=== PATIENT | male | born 1995 | race African-American/Black ===

== ENCOUNTER 2018-01-14 08:21 | Emergency (ER) | payer MEDICAID ==
[2018-01-14 08:30] VITALS: BP 145/82
[2018-01-14] MEDS ORDERED: POLYMYXIN B SULFATE/TMP OPH SOLN (10 ML/ER DISP) OS PRN (09:04)
--- NOTE | 2018-01-14 09:06 | ER Document Report ---
ED General - General Chief Complaint: Redness of Eye Stated Complaint: EYE REDNESS Time Seen by Provider: 01/14/18 08:49 TRAVEL OUTSIDE OF THE [place] IN LAST 30 DAYS: No - HPI Patient complains to provider of: Left eye redness Notes: Patient coming in for evaluation of left eye redness and drainage and discomfort. Patient states recently had a URI. Patient denies any fevers or chills states he was around family members that had pinkeye last week. Patient does not wear contacts does not wear glasses. Resting comfortably upon my evaluation. States this morning it was mildly matted with purulent material - Related Data Allergies/Adverse Reactions: No Known Allergies Allergy (Unverified 07/05/16 22:31) Past Medical History - Social History Smoking Status: Never Smoker Chew tobacco use (# tins/day): No Frequency of alcohol use: None Drug Abuse: None Family History: Reviewed & Not Pertinent Patient has suicidal ideation: No Patient has homicidal ideation: No Renal/ Medical History: Denies: Hx Peritoneal Dialysis - Immunizations Immunizations up to date: Yes Review of Systems - Review of Systems Constitutional: No symptoms reported EENT: Eye discharge Cardiovascular: No symptoms reported Respiratory: No symptoms reported Gastrointestinal: No symptoms reported Genitourinary: No symptoms reported Male Genitourinary: No symptoms reported Musculoskeletal: No symptoms reported Skin: No symptoms reported Hematologic/Lymphatic: No symptoms reported Neurological/Psychological: No symptoms reported -: Yes All other systems reviewed and negative Physical Exam - Vital signs Vitals: Temp Pulse Resp BP Pulse Ox 98.3 F 72 16 145/82 H 99 01/14/18 08:25 01/14/18 08:25 01/14/18 08:25 01/14/18 08:25 01/14/18 08:25 Interpretation: Normal - General General appearance: Appears well, Alert - HEENT Head: Normocephalic, Atraumatic Eyes: Normal Conjunctiva: Injected, Purulent discharge, Other - Left eye right eye unaffected Cornea: Normal Extraocular movements intact: Yes Eyelashes: Normal Pupils: PERRL Anterior chamber: Normal Fundascopic: Normal - Respiratory Respiratory status: No respiratory distress Chest status: Nontender Breath sounds: Normal Chest palpation: Normal - Cardiovascular Rhythm: Regular Heart sounds: Normal auscultation Murmur: No - Abdominal Inspection: Normal Distension: No distension Bowel sounds: Normal Tenderness: Nontender Organomegaly: No organomegaly - Back Back: Normal, Nontender - Extremities General upper extremity: Normal inspection, Nontender, Normal color, Normal ROM , Normal temperature General lower extremity: Normal inspection, Nontender, Normal color, Normal ROM , Normal temperature, Normal weight bearing. No: Jace's sign - Neurological Neuro grossly intact: Yes Cognition: Normal Orientation: AAOx4 [place] Coma Scale Eye Opening: Spontaneous [place] Coma Scale Verbal: Oriented [place] Coma Scale Motor: Obeys Commands Ros[place] Coma Scale Total: 15 Speech: Normal Motor strength normal: LUE, RUE, LLE, RLE Sensory: Normal - Psychological Associated symptoms: Normal affect, Normal mood - Skin Skin Temperature: Warm Skin Moisture: Dry Skin Color: Normal Course - Re-evaluation Re-evalutation: 01/14/18 13:59 Patient's physical examination is consistent with conjunctivitis patient was placed on Polytrim. No signs of foreign body seen on examination of the any other significant pathology. Patient will be discharged home - Vital Signs Vital signs: Temp Pulse Resp BP Pulse Ox 98.3 F 72 16 145/82 H 99 01/14/18 08:25 01/14/18 08:25 01/14/18 08:25 01/14/18 08:25 01/14/18 08:25 Discharge - Discharge Clinical Impression: Conjunctivitis Qualifiers: Conjunctivitis type: unspecified Laterality: left Qualified Code(s): H10.9 - Unspecified conjunctivitis Condition: Good Disposition: HOME, SELF-CARE Instructions: Conjunctivitis ([facility]), Eyedrop Use ([facility]) Additional Instructions: Follow-up with your primary care physician. Please use the eyedrops given to you in ER 2 drops 4 times a day for the next 10 days. Tylenol Motrin for pain control.
== END 2018-01-14 09:44 | disposition home or self-care (01) ==
LOC: ER 08:21
DX: H10.9 Unspecified conjunctivitis (principal)
CPT/HCPCS: 99282; J3490

== ENCOUNTER 2018-01-30 23:55 | Emergency (ER) | payer MEDICAID ==
--- NOTE | 2018-01-31 01:11 | ER Document Report ---
ED Medical Screen (RME) - General Chief Complaint: Pain With Urination Stated Complaint: URINARY PROBLEM Time Seen by Provider: 01/31/18 01:10 Mode of Arrival: Ambulatory Information source: Patient Notes: 22-year-old male presents to ED for complaint of pain and burning with urination with a white penile discharge for a month. He states he does not feel like when he had chlamydia this is different. I have greeted and performed a rapid initial assessment of this patient. A comprehensive ED assessment and evaluation of the patient, analysis of test results and completion of medical decision making process will be conducted by an additional ED providers. TRAVEL OUTSIDE OF THE [place] IN LAST 30 DAYS: No - Related Data Allergies/Adverse Reactions: No Known Allergies Allergy (Unverified 07/05/16 22:31) Past Medical History Renal/ Medical History: Denies: Hx Peritoneal Dialysis - Immunizations Immunizations up to date: Yes Physical Exam - Vital signs Vitals: Temp Pulse Resp BP Pulse Ox 98.4 F 86 16 131/92 H 97 01/30/18 23:56 01/30/18 23:56 01/30/18 23:56 01/30/18 23:56 01/30/18 23:56 Course - Vital Signs Vital signs: Temp Pulse Resp BP Pulse Ox 98.4 F 86 16 131/92 H 97 01/30/18 23:56 01/30/18 23:56 01/30/18 23:56 01/30/18 23:56 01/30/18 23:56
[2018-01-31 01:43] LABS: APPEARANCE,URINE CLOUDY; BILIRUBIN,URINE NEGATIVE (NEGATIVE); COLOR,URINE YELLOW; GLUCOSE, URINE NEGATIVE (NEGATIVE); KETONES,URINE NEGATIVE (NEGATIVE); LEUKOCYTE ESTERASE,URINE LARGE (NEGATIVE); NITRITE,URINE NEGATIVE (NEGATIVE); PROTEIN,URINE NEGATIVE (NEGATIVE); URINE SPECIFIC GRAVITY 1.032
[2018-01-31] MEDS ORDERED: METRONIDAZOLE 500 MG TABLET PO ONE (02:15)
[2018-01-31] MEDS ORDERED: AZITHROMYCIN 1 GM SUSP PACKET PO ONE (02:15)
[2018-01-31] MEDS ORDERED: CEFTRIAXONE INJ 250 MG VIAL IM ONE (02:16)
--- NOTE | 2018-01-31 02:19 | ER Document Report ---
ED General - General Chief Complaint: Pain With Urination Stated Complaint: URINARY PROBLEM Time Seen by Provider: 01/31/18 01:10 Mode of Arrival: Ambulatory TRAVEL OUTSIDE OF THE [place] IN LAST 30 DAYS: No - HPI Patient complains to provider of: Dysuria Notes: Patient coming in for dysuria and penile discharge. Patient states has history of chlamydia in the past however penile discharge and burning ongoing for approximately 1 month. Patient is white discharge expressed from his penis. Patient denies any fevers chills nausea vomiting diarrhea denies any inguinal pain. Patient otherwise resting comfortably upon my evaluation. Denies any sores on his penis. - Related Data Allergies/Adverse Reactions: No Known Allergies Allergy (Unverified 07/05/16 22:31) Past Medical History - General Information source: Patient - Social History Smoking Status: Unknown if Ever Smoked Family History: Reviewed & Not Pertinent Renal/ Medical History: Denies: Hx Peritoneal Dialysis - Immunizations Immunizations up to date: Yes Review of Systems - Review of Systems Constitutional: No symptoms reported EENT: No symptoms reported Cardiovascular: No symptoms reported Respiratory: No symptoms reported Gastrointestinal: No symptoms reported Genitourinary: Dysuria Male Genitourinary: Penile discharge Musculoskeletal: No symptoms reported Skin: No symptoms reported Hematologic/Lymphatic: No symptoms reported Neurological/Psychological: No symptoms reported Physical Exam - Vital signs Vitals: Temp Pulse Resp BP Pulse Ox 98.4 F 86 16 131/92 H 97 01/30/18 23:56 01/30/18 23:56 01/30/18 23:56 01/30/18 23:56 01/30/18 23:56 Interpretation: Normal - General General appearance: Appears well, Alert - HEENT Head: Normocephalic, Atraumatic Eyes: Normal Pupils: PERRL - Respiratory Respiratory status: No respiratory distress Chest status: Nontender Breath sounds: Normal Chest palpation: Normal - Cardiovascular Rhythm: Regular Heart sounds: Normal auscultation Murmur: No - Abdominal Inspection: Normal Distension: No distension Bowel sounds: Normal Tenderness: Nontender Organomegaly: No organomegaly - Genitourinary Inspection: Normal, Penile discharge - Patient is able to express a very scant amount of white discharge from the penis Tenderness: Nontender Cremasteric reflex: Normal - Back Back: Normal, Nontender - Extremities General upper extremity: Normal inspection, Nontender, Normal color, Normal ROM , Normal temperature General lower extremity: Normal inspection, Nontender, Normal color, Normal ROM , Normal temperature, Normal weight bearing. No: Jace's sign - Neurological Neuro grossly intact: Yes Cognition: Normal Orientation: AAOx4 [place] Coma Scale Eye Opening: Spontaneous [place] Coma Scale Verbal: Oriented [place] Coma Scale Motor: Obeys Commands [place] Coma Scale Total: 15 Speech: Normal Motor strength normal: LUE, RUE, LLE, RLE Sensory: Normal - Psychological Associated symptoms: Normal affect, Normal mood - Skin Skin Temperature: Warm Skin Moisture: Dry Skin Color: Normal Course - Re-evaluation Re-evalutation: 01/31/18 04:11 Penile discharge concerning for possible STD. Patient agrees with treatment at this time we will get the patient Rocephin for gonorrhea Zithromax for chlamydia and Flagyl for trichomonas. There is bacteria actually seen on the urinalysis with signs of significant infection I will go ahead and start the patient on Keflex urine culture was sent patient will be discharged home - Vital Signs Vital signs: Temp Pulse Resp BP Pulse Ox 98.1 F 90 18 128/87 H 98 01/31/18 02:50 01/31/18 02:50 01/31/18 02:50 01/31/18 02:50 01/31/18 02:50 - Laboratory Laboratory results interpreted by me: 01/31/18 01:20 Urine Urobilinogen 4.0 H Ur Leukocyte Esterase LARGE H Discharge - Discharge Clinical Impression: Penile discharge UTI (urinary tract infection) Qualifiers: Urinary tract infection type: site unspecified Hematuria presence: without hematuria Qualified Code(s): N39.0 - Urinary tract infection, site not specified Condition: Good Disposition: HOME, SELF-CARE Instructions: Cephalexin ([facility]), Urinary Tract Infection ([facility]) Additional Instructions: Your urinalysis today does show signs of infection. I am concerned with the penile discharge and she may have underlying STD. We will give you a medication called Rocephin to treat you for gonorrhea we will give you a medication called azithromycin to treat you for chlamydia and I will give you a medication called Flagyl to treat for any signs of trichomonas. At this time her testing for these STDs is currently pending. The treatment would not harm me. I will also give a prescription for an antibiotic called Keflex and she will need to take for the next 7 days. We will send urine for culture unfortunately the urine culture will not be back for another 48 hours. Your STD testing will be available tomorrow I will highly suggest calling the ER for your results. Prescriptions: Cephalexin Monohydrate [Keflex 500 mg Capsule] 500 mg PO Q6H 7 Days capsule
[2018-01-31 02:52] VITALS: BP 128/87
[2018-01-31 03:04] LABS: CHLAM PCR NOT DETECTED (NOT DETECT); GON PCR NOT DETECTED (NOT DETECT)
== END 2018-01-31 02:50 | disposition home or self-care (01) ==
LOC: ER 23:55
DX: N39.0 Urinary tract infection, site not specified (principal); R36.9 Urethral discharge, unspecified
CPT/HCPCS: 99283; 96372; 87086; 81001; 87491; 87591; Q0144; J3490; J0696

== ENCOUNTER 2018-07-28 19:43 | Emergency (ER) | payer OTHER, MEDICAID ==
[2018-07-28 21:03] VITALS: BP 136/71
[2018-07-28] MEDS ORDERED: ACETAMINOPHEN 325 MG TABLET PO ONE (22:19)
[2018-07-28] MEDS ORDERED: IBUPROFEN 600 MG TABLET PO ONE (22:20)
[2018-07-28] MEDS ORDERED: LIDOCAINE 5% (700 MG) TRANSDERMAL ADH..PATCH TP ONE (22:20)
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
== END 2018-07-28 22:43 | disposition home or self-care (01) ==
LOC: ER 19:43
DX: M54.5 Low back pain (principal); V43.62XA Car passenger injured in collision with other type car in traffic accident, initial encounter; F17.200 Nicotine dependence, unspecified, uncomplicated
CPT/HCPCS: 99283

== ENCOUNTER 2019-02-04 13:23 | Emergency (ER) | payer MEDICAID, OTHER ==
[2019-02-04] MEDS ORDERED: ASPIRIN 81 MG TABLET, CHEWABLE PO ONE (13:37)
--- NOTE | 2019-02-04 13:38 | ER Document Report ---
ED Medical Screen (RME) - General Chief Complaint: Palpitations Stated Complaint: FEELS LIKE HEART IS "RACING" Time Seen by Provider: 02/04/19 13:33 Mode of Arrival: Ambulatory Information source: Patient Notes: Patient presents complaining of chest pain with palpitations that started yesterday. Patient does report mild cough. Patient denies any nausea vomiting or shortness of breath. Patient denies any significant medical history. I have greeted and performed a rapid initial assessment of this patient. A comprehensive ED assessment and evaluation of the patient, analysis of test re sults and completion of the medical decision making process will be conducted by additional ED providers. TRAVEL OUTSIDE OF THE [place] IN LAST 30 DAYS: No - Related Data Allergies/Adverse Reactions: No Known Allergies Allergy (Verified 02/04/19 13:24) Past Medical History Renal/ Medical History: Denies: Hx Peritoneal Dialysis - Immunizations Immunizations up to date: Yes Physical Exam - Vital signs Vitals: Temp Pulse Resp BP Pulse Ox 99.2 F 72 14 108/79 97 02/04/19 13:33 02/04/19 13:33 02/04/19 13:33 02/04/19 13:33 02/04/19 13:33 - Cardiovascular Rhythm: Regular Heart sounds: S1 appreciated, S2 appreciated Murmur: No Course - Vital Signs Vital signs: Temp Pulse Resp BP Pulse Ox 99.2 F 72 14 108/79 97 02/04/19 13:33 02/04/19 13:33 02/04/19 13:33 02/04/19 13:33 02/04/19 13:33
[2019-02-04 14:16] LABS: ABSOLUTE EOSINOPHILS # (AUTO) 0.3 10^3/uL (0.0-0.6); ABSOLUTE LYMPHOCYTES (AUTO) 1.5 10^3/uL (0.5-4.7); ABSOLUTE MONOCYTES (AUTO) 0.6 10^3/uL (0.1-1.4); ABSOLUTE NEUT (AUTO) 7.3 10^3/uL (1.7-8.2); BASOPHILS % (AUTO) 0.3 % (0-2); EOSINOPHILS % (AUTO) 3.3 % (0-6); HEMATOCRIT 45.8 % (37.9-51.0); HEMOGLOBIN 15.5 g/dL (13.5-17.0); LYMPHOCYTES % (AUTO) 15.1 % (13-45); MEAN CORPUSCULAR HEMOGLOBIN 29.1 pg (27.0-33.4); MEAN CORPUSCULAR HGB CONC 33.8 g/dL (32.0-36.0); MEAN CORPUSCULAR VOLUME 86 fl (80-97); MONOCYTES % (AUTO) 6.6 % (3-13); PLATELET COUNT 208 10^3/uL (150-450); RED BLOOD COUNT 5.31 10^6/uL (4.35-5.55); RED CELL DISTRIBUTION WIDTH 14.9 % (11.5-14.0); SEGMENTED NEUTROPHILS % (AUTO) 74.7 % (42-78); TOTAL CELLS COUNTED % (AUTO) 100 %; WHITE BLOOD COUNT 9.7 10^3/uL (4.0-10.5)
--- NOTE | 2019-02-04 14:19 | RADIOLOGY REPORT (SQ) ---
EXAM DESCRIPTION: CHEST 2 VIEWS COMPLETED DATE/TIME: 02/04/2019 2:06 pm REASON FOR STUDY: palpitations, cp COMPARISON: 03/22/2010 EXAM PARAMETERS: NUMBER OF VIEWS: two views TECHNIQUE: Digital Frontal and Lateral radiographic views of the chest acquired. RADIATION DOSE: NA LIMITATIONS: none FINDINGS: LUNGS AND PLEURA: No opacities, masses or pneumothorax. No pleural effusion. MEDIASTINUM AND HILAR STRUCTURES: No masses or contour abnormalities. HEART AND VASCULAR STRUCTURES: Heart normal size. No evidence for failure. BONES: No acute findings. HARDWARE: None in the chest. OTHER: No other significant finding. IMPRESSION: No acute abnormality of the lungs. No focal airspace opacity. TECHNICAL DOCUMENTATION: JOB ID: [id number] [employer]- All Rights Reserved Reading location - IP/workstation name: [email or web address]
[2019-02-04 14:36] LABS: ALANINE AMINOTRANSFERASE 24 U/L (21-72); ALBUMIN 4.6 g/dL (3.5-5.0); ALKALINE PHOSPHATASE 59 U/L (38-126); ANION GAP 9 (5-19); ASPARTATE AMINO TRANSFERASE 31 U/L (17-59); BILIRUBIN,DIRECT 0.2 mg/dL (0.0-0.4); BILIRUBIN,TOTAL 0.4 mg/dL (0.2-1.3); BLOOD UREA NITROGEN 16 mg/dL (7-20); CALCIUM 9.7 mg/dL (8.4-10.2); CARBON DIOXIDE 29 mmol/L (22-30); CHLORIDE 102 mmol/L (98-107); CREATINE KINASE 286 U/L (55-170); GLUCOSE 86 mg/dL (75-110); SODIUM 140.4 mmol/L (137-145); TOTAL PROTEIN 7.3 g/dL (6.3-8.2)
--- NOTE | 2019-02-04 16:13 | ER Document Report ---
ED General - General Chief Complaint: Palpitations Stated Complaint: FEELS LIKE HEART IS "RACING" Time Seen by Provider: 02/04/19 13:33 Mode of Arrival: Ambulatory Information source: Patient, [facility] Records Notes: 23-year-old male presents with 2 days of intermittent chest pain. Patient states that he first experienced chest pain while lifting a couch. He states he has had intermittent episodes of palpitations. Patient denies prior similar symptoms, recent illness. Patient currently has no chest pain. He denies any associated shortness of breath, diaphoresis, nausea or dizziness. Patient does admit to tobacco and marijuana use. Denies any significant family history of early cardiac disease. TRAVEL OUTSIDE OF THE [place] IN LAST 30 DAYS: No - HPI Onset: Other Onset/Duration: Intermittent Quality of pain: Sharp Severity: Mild Pain Level: 1 Associated symptoms: Chest pain. denies: Nonproductive cough, Productive cough, Fever, Headache, Hurts to breath, Nausea, Shortness of breath, Weakness Exacerbated by: Movement Relieved by: Denies Similar symptoms previously: No Recently seen / treated by doctor: No - Related Data Allergies/Adverse Reactions: No Known Allergies Allergy (Verified 02/04/19 15:20) Past Medical History - General Information source: Patient - Social History Smoking Status: Current Some Day Smoker Cigarette use (# per day): Yes - 2-3 Smoking Education Provided: Yes - Smoking cessation counseling was provided for 4 minutes at the bedside Frequency of alcohol use: None Drug Abuse: Marijuana Lives with: Family Family History: Reviewed & Not Pertinent Patient has suicidal ideation: No Patient has homicidal ideation: No - Medical History Medical History: Negative Renal/ Medical History: Denies: Hx Peritoneal Dialysis - Immunizations Immunizations up to date: Yes Review of Systems - Review of Systems Notes: REVIEW OF SYSTEMS: CONSTITUTIONAL : Denies fever, chills, or sweats. Denies recent illness. Denies weight loss, recent hospitalizations. EENT: Denies visual changes, eye pain. Denies sore throat, oral lesions, difficulty swallowing. CARDIOVASCULAR: + chest pain. Denies palpitations. Denies lower extremity edema. RESPIRATORY: Denies cough. Denies shortness of breath, wheezing. GASTROINTESTINAL: Denies abdominal pain or distention. Denies nausea, vomiting, or diarrhea. Denies blood in vomitus, stools, or per rectum. Denies black, tarry stools. Denies constipation. GENITOURINARY: Denies difficulty urinating, painful urination, frequency, blood in urine, testicular pain or penile discharge. MUSCULOSKELETAL: Denies back or neck pain or stiffness. Denies joint pain or swelling. SKIN: Denies rash, lesions or sores. HEMATOLOGIC : Denies easy bruising or bleeding. LYMPHATIC: Denies swollen glands. NEUROLOGICAL: Denies confusion or altered mental status. Denies loss of consciousness. Denies dizziness or lightheadedness. Denies headache. Denies weakness or paralysis. Denies problems difficulty with ambulation, slurred speech. Denies sensory loss, numbness, or tingling. Denies seizures. PSYCHIATRIC: Denies anxiety or stress. Denies depression, suicidal ideation, or Physical Exam - Vital signs Vitals: Temp Pulse Resp BP Pulse Ox 99.2 F 72 14 108/79 97 02/04/19 13:33 02/04/19 13:33 02/04/19 13:33 02/04/19 13:33 02/04/19 13:33 - Notes Notes: PHYSICAL EXAMINATION: GENERAL: Well-appearing, well-nourished and in no acute distress. HEAD: Atraumatic, normocephalic. EYES: Pupils equal round and reactive to light, extraocular movements intact, sclera anicteric, conjunctiva are normal. ENT: Nares patent, oropharynx clear without exudates. Moist mucous membranes. NECK: Normal range of motion, supple without lymphadenopathy LUNGS: Breath sounds clear to auscultation bilaterally and equal. No wheezes rales or rhonchi. HEART: Regular rate and rhythm without murmurs ABDOMEN: Soft, nontender, nondistended abdomen. No guarding, no rebound. No ma sses appreciated. Musculoskeletal: Normal range of motion, no pitting or edema. No cyanosis. NEUROLOGICAL: Cranial nerves grossly intact. Normal speech, normal gait. Normal sensory, motor exams PSYCH: Normal mood, normal affect. SKIN: Warm, Dry, normal turgor, no rashes or lesions noted. Course - Re-evaluation Re-evalutation: 02/04/19 21:31 Laboratory 02/04/19 02/04/19 02/04/19 13:55 13:55 13:55 WBC 9.7 RBC 5.31 Hgb 15.5 Hct 45.8 MCV 86 MCH 29.1 MCHC 33.8 RDW 14.9 H Plt Count 208 Seg Neutrophils % 74.7 Lymphocytes % 15.1 Monocytes % 6.6 Eosinophils % 3.3 Basophils % 0.3 Absolute Neutrophils 7.3 Absolute Lymphocytes 1.5 Absolute Monocytes 0.6 Absolute Eosinophils 0.3 Absolute Basophils 0.0 Sodium 140.4 Potassium 4.0 Chloride 102 Carbon Dioxide 29 Anion Gap 9 BUN 16 Creatinine 1.12 Est GFR ( Amer) > 60 Est GFR (Non-Af Amer) > 60 Glucose 86 Calcium 9.7 Magnesium Total Bilirubin 0.4 Direct Bilirubin 0.2 Neonat Total Bilirubin Not Reportable Neonat Direct Bilirubin Not Reportable Neonat Indirect Bili Not Reportable AST 31 ALT 24 Alkaline Phosphatase 59 Creatine Kinase 286 H Troponin I 0.014 Total Protein 7.3 Albumin 4.6 TSH 02/04/19 02/04/19 13:55 13:55 WBC RBC Hgb Hct MCV MCH MCHC RDW Plt Count Seg Neutrophils % Lymphocytes % Monocytes % Eosinophils % Basophils % Absolute Neutrophils Absolute Lymphocytes Absolute Monocytes Absolute Eosinophils Absolute Basophils Sodium Potassium Chloride Carbon Dioxide Anion Gap BUN Creatinine Est GFR ( Amer) Est GFR (Non-Af Amer) Glucose Calcium Magnesium 2.4 H Total Bilirubin Direct Bilirubin Neonat Total Bilirubin Neonat Direct Bilirubin Neonat Indirect Bili AST ALT Alkaline Phosphatase Creatine Kinase Troponin I Total Protein Albumin TSH 0.38 L 02/04/19 21:31 Temp Pulse Resp BP Pulse Ox 99.2 F 72 16 141/77 H 100 02/04/19 13:33 02/04/19 13:33 02/04/19 16:02 02/04/19 16:02 02/04/19 16:02 Laboratory 02/04/19 02/04/19 02/04/19 13:55 13:55 13:55 WBC 9.7 RBC 5.31 Hgb 15.5 Hct 45.8 MCV 86 MCH 29.1 MCHC 33.8 RDW 14.9 H Plt Count 208 Seg Neutrophils % 74.7 Lymphocytes % 15.1 Monocytes % 6.6 Eosinophils % 3.3 Basophils % 0.3 Absolute Neutrophils 7.3 Absolute Lymphocytes 1.5 Absolute Monocytes 0.6 Absolute Eosinophils 0.3 Absolute Basophils 0.0 Sodium 140.4 Potassium 4.0 Chloride 102 Carbon Dioxide 29 Anion Gap 9 BUN 16 Creatinine 1.12 Est GFR ( Amer) > 60 Est GFR (Non-Af Amer) > 60 Glucose 86 Calcium 9.7 Magnesium Total Bilirubin 0.4 Direct Bilirubin 0.2 Neonat Total Bilirubin Not Reportable Neonat Direct Bilirubin Not Reportable Neonat Indirect Bili Not Reportable AST 31 ALT 24 Alkaline Phosphatase 59 Creatine Kinase 286 H Troponin I 0.014 Total Protein 7.3 Albumin 4.6 TSH 02/04/19 02/04/19 13:55 13:55 WBC RBC Hgb Hct MCV MCH MCHC RDW Plt Count Seg Neutrophils % Lymphocytes % Monocytes % Eosinophils % Basophils % Absolute Neutrophils Absolute Lymphocytes Absolute Monocytes Absolute Eosinophils Absolute Basophils Sodium Potassium Chloride Carbon Dioxide Anion Gap BUN Creatinine Est GFR ( Amer) Est GFR (Non-Af Amer) Glucose Calcium Magnesium 2.4 H Total Bilirubin Direct Bilirubin Neonat Total Bilirubin Neonat Direct Bilirubin Neonat Indirect Bili AST ALT Alkaline Phosphatase Creatine Kinase Troponin I Total Protein Albumin TSH 0.38 L HEART Score: History-0 ECG-0 Age-0 Risk Factors-0 Troponin-0 Total: 0 If HEART score is = 3 AND both troponin measurements are normal, the 30 day risk of a major adverse cardiac event (all-cause mortality, myocardial infarction or need for coronary revascularization) is < 1% (Sensitivity 100%, NPV 100%). Chest pain in a patient without evidence of cardiac or other serious etiology on workup today. I discussed with patient that, based on their age, risk factors and emergency department testing today, the likelihood that their symptoms are related to a heart attack is very low (estimated risk of heart attack or over the next 30 days of less than 1%). The patient demonstrates decision making capacity and has verbalized an understanding of these risks to me. Based on this, the patient has chosen to follow-up as an outpatient. Usual chest pain return precautions reviewed. The patient states understanding and agreement with this plan. - Vital Signs Vital signs: Temp Pulse Resp BP Pulse Ox 99.2 F 72 16 141/77 H 100 02/04/19 13:33 02/04/19 13:33 02/04/19 16:02 02/04/19 16:02 02/04/19 16:02 - Laboratory Result Diagrams: 02/04/19 13:55 02/04/19 13:55 Laboratory results interpreted by me: 02/04/19 02/04/19 02/04/19 13:55 13:55 13:55 RDW 14.9 H Magnesium Creatine Kinase 286 H TSH 0.38 L 02/04/19 13:55 RDW Magnesium 2.4 H Creatine Kinase TSH - Diagnostic Test Radiology reviewed: Image reviewed, Reports reviewed - EKG Interpretation by Me EKG shows normal: Sinus rhythm Rate: Normal Rhythm: NSR When compared to previous EKG there are: No significant change Discharge - Discharge Clinical Impression: Palpitations Chest pain Qualifiers: Chest pain type: unspecified Qualified Code(s): R07.9 - Chest pain, unspecified Condition: Good Disposition: HOME, SELF-CARE Instructions: Chest Pain of Unclear Cause ([facility]), Palpitations (Irregular or Rapid Heartrate) ([facility]) Additional Instructions: You were seen today for chest pain. The exact cause of your pain is unclear. However, based on your cardiac enzyme testing, chest x-ray, and EKG it does not appear that it is from an immediately life-threatening cause at this time. Although your testing here is normal is critical that you follow-up with your primary care physician for continued evaluation of this chest pain and possible stress testing. I recommended you see your physician within the next 24-48 hours to be evaluated for consideration of a stress test. Please return to emergency department immediately if you have worsening of your chest pain, shortness of breath, vomiting, become unable to exert yourself due to pain or difficulty breathing, you pass out, or have any pain that radiates into your arms, jaw, or back. Please also return if you have any additional symptoms that are concerning to you. Forms: Smoking Cessation Education, Return to Work
[2019-02-04 16:23] VITALS: BP 141/77
--- NOTE | 2019-02-04 18:19 | EKG REPORT ---
SEVERITY:- NORMAL ECG - SINUS RHYTHM ST ELEV, PROBABLE NORMAL EARLY REPOL PATTERN : Confirmed by: Dieudonne Max MD 04-Feb-2019 18:18:37
== END 2019-02-04 16:23 | disposition home or self-care (01) ==
LOC: ER 13:23
DX: R00.2 Palpitations (principal); R07.9 Chest pain, unspecified; X50.0XXA Overexertion from strenuous movement or load, initial encounter; F17.210 Nicotine dependence, cigarettes, uncomplicated; Z71.6 Tobacco abuse counseling; F12.10 Cannabis abuse, uncomplicated
CPT/HCPCS: 36415; 71046; 80053; 82550; 83735; 84443; 84484; 85025; 93005; 93010; 99285; 99406

== ENCOUNTER 2019-08-31 16:04 | Emergency (ER) | payer SELFPAY ==
[2019-08-31 16:13] VITALS: BP 140/82
== END 2019-09-01 03:16 | disposition left against medical advice (07) ==
LOC: ER 16:04
DX: Z53.21 Procedure and treatment not carried out due to patient leaving prior to being seen by health care provider (principal)

== ENCOUNTER 2020-04-26 07:17 | Emergency (ER) | payer SELFPAY ==
[2020-04-26 07:22] VITALS: BP 130/74
[2020-04-26] MEDS ORDERED: AZITHROMYCIN 250 MG TABLET PO ONE (07:49)
[2020-04-26] MEDS ORDERED: CEFTRIAXONE INJ 250 MG VIAL IM ONE (07:49)
[2020-04-26] MEDS ORDERED: LIDOCAINE 1% INJ-PF (10 MG/ML) 30 ML SDV NEB ONE (07:49)
--- NOTE | 2020-04-26 07:53 | ER Document Report ---
ED General - General Chief Complaint: Flank Pain Stated Complaint: BACK PAIN Time Seen by Provider: 04/26/20 07:40 Notes: Patient presents with penile lesions right groin pain rating to the back. The penile lesions been present for about 3 or 4 days. He describes them as painless bubbles with clear drainage. He also notes yellowish urethral discharge and mild dysuria for the last couple of days. He has "lymph noodles" in his right groin which she feels are enlarged. His girlfriend told him she just tested positive for herpes. They both got tested 1 month ago [facility] for [facility] STIs and were both negative. O his right groin pain radiates slightly to his scrotum but his testicle itself is not painful or swollen. Nausea no vomiting. TRAVEL OUTSIDE OF THE [place] IN LAST 30 DAYS: No - Related Data Allergies/Adverse Reactions: No Known Allergies Allergy (Verified 08/31/19 17:59) Past Medical History - General Information source: Patient - Social History Smoking Status: Current Every Day Smoker Frequency of alcohol use: None Drug Abuse: Marijuana Family History: Reviewed & Not Pertinent Renal/ Medical History: Denies: Hx Peritoneal Dialysis - Immunizations Immunizations up to date: Yes Review of Systems - Review of Systems Notes: REVIEW OF SYSTEMS GEN: Denies fever, chills, weight loss ENT: Denies sore throat, nasal discharge, ear pain EYES: Denies blurry vision, eye pain, discharge CV: Denies chest pain, palpitations, edema RESP: Denies cough, shortness of breath, wheezing GI: Right lower abdominal/groin pain MSK: Leg and back pain SKIN: Denies rash, skin lesions LYMPH: Denies swollen glands/lymph nodes NEURO: Denies headache, focal weakness or numbness, dizziness PSYCH: Denies depression, suicidal or homicidal ideation PHYSICAL EXAMINATION General: No acute distress, well-nourished Head: Atraumatic, normocephalic ENT: Mouth normal, oropharynx moist, no exudates or tonsillar enlargement Eyes: Conjunctiva normal, pupils equal, lids normal Neck: No JVD, supple, no guarding CVS: Normal rate, regular rhythm, no murmurs Resp: No resp distress, equal and normal breath sounds bilaterally GI: Nondistended, soft, no tenderness to palpation, no rebound or guarding : Normal penis with 1 or 2 small vesicles on the shaft of the right side. Glands normal no obvious discharge charge. Normal testicular lie, cremasteric and no tenderness Ext: No deformities, no edema, normal range of motion in upper and lower ext Back: No CVA or midline TTP Skin: No rash, warm Lymphati inguinal with adenopathy tender Neuro: Awake, alert. Face symmetric. GCS 15. Physical Exam - Vital signs Vitals: Temp Pulse Resp BP Pulse Ox 98.3 F 70 14 130/74 H 97 04/26/20 07:21 04/26/20 07:21 04/26/20 07:21 04/26/20 07:21 04/26/20 07:21 Course - Re-evaluation Re-evalutation: 04/26/20 07:54 Urethritis with inguinal lymphadenopathy mostly reflecting chlamydia versus gonorrhea. No super enlarged lymph nodes or fever to suggest LGV, no evidence of syphilis. Possible herpes as well We will treat empirically test for committee gonorrhea, outpatient acyclovir, and stressed celibacy for 7 days partner testing treatment and follow-up for HIV testing. Doubt kidney stone testicular torsion epididymal orchitis given physical exam and story. I have discussed with the patient there likely diagnosis, aftercare plan, follow-up plans and my usual and customary return precautions. They verbalized understanding of this. - Vital Signs Vital signs: Temp Pulse Resp BP Pulse Ox 98.3 F 70 14 130/74 H 97 04/26/20 07:21 04/26/20 07:21 04/26/20 07:21 04/26/20 07:21 04/26/20 07:21 Discharge - Discharge Clinical Impression: Urethritis Condition: Good Disposition: HOME, SELF-CARE Instructions: Urethritis ([facility]) Prescriptions: Valacyclovir HCl [Valacyclovir] 500 mg PO BID #20 tablet
[2020-04-26 07:59] LABS: AMORPHOUS SEDIMENT,URINE TRACE /HPF; APPEARANCE,URINE SLIGHTLY-CLOUDY; BILIRUBIN,URINE NEGATIVE (NEGATIVE); COLOR,URINE YELLOW; GLUCOSE, URINE NEGATIVE (NEGATIVE); KETONES,URINE NEGATIVE (NEGATIVE); LEUKOCYTE ESTERASE,URINE SMALL (NEGATIVE); NITRITE,URINE NEGATIVE (NEGATIVE); PROTEIN,URINE NEGATIVE (NEGATIVE); URINE SPECIFIC GRAVITY 1.025
[2020-04-26] MEDS ORDERED: IBUPROFEN 600 MG TABLET PO ONE (08:11)
[2020-04-26 13:02] LABS: CHLAM PCR NOT DETECTED (NOT DETECT)
== END 2020-04-26 08:11 | disposition home or self-care (01) ==
LOC: ER 07:17
DX: N34.2 Other urethritis (principal); R59.0 Localized enlarged lymph nodes; F17.200 Nicotine dependence, unspecified, uncomplicated; F12.10 Cannabis abuse, uncomplicated
CPT/HCPCS: 99284; 96372; 81001; 87491; 87591; J3490; J0696

== ENCOUNTER 2020-04-28 20:15 | Emergency (ER) | payer SELFPAY ==
[2020-04-28 20:21] VITALS: BP 131/66
--- NOTE | 2020-04-28 21:45 | ER Document Report ---
ED General - General Chief Complaint: Abdominal Pain Stated Complaint: ABDOMINAL PAIN Notes: Patient is a 24-year-old black male with no reported past medical history who was seen here 2 days ago for STD check, had some penile lesions with some inguinal lymphadenopathy who was treated with Rocephin and Zithromax for gonorrhea and chlamydia who presents today with a chief complaint of right lower quadrant abdominal pain. He states it began a couple days ago. States it is in the right lower quadrant and sometimes radiates around to the right flank. He states it is a burning sensation in nature. Denies any association with urinary symptoms. Denies any testicular pain or swelling. Admits to some ongoing inguinal lymphadenopathy that is slightly tender. States he was given acyclovir but did not start taking the medication. He denies any fever, nausea, vomiting. Admits to some diarrhea. Denies any chest pain or shortness of breath. No recent travel or known sick contacts. TRAVEL OUTSIDE OF THE [place] IN LAST 30 DAYS: No - Related Data Allergies/Adverse Reactions: No Known Allergies Allergy (Verified 04/28/20 22:46) Past Medical History - Social History Smoking Status: Unknown if Ever Smoked Family History: Reviewed & Not Pertinent Renal/ Medical History: Denies: Hx Peritoneal Dialysis - Immunizations Immunizations up to date: Yes Review of Systems - Review of Systems Constitutional: denies: Fever EENT: denies: Throat pain Cardiovascular: denies: Chest pain Respiratory: denies: Short of breath Gastrointestinal: Abdominal pain Genitourinary: denies: Dysuria Male Genitourinary: denies: Testicular pain Musculoskeletal: denies: Back pain Skin: denies: Change in color Hematologic/Lymphatic: denies: Easy bleeding Neurological/Psychological: denies: Headaches Physical Exam - Vital signs Vitals: Temp Pulse Resp BP Pulse Ox 98.2 F 65 16 131/66 H 98 04/28/20 20:20 04/28/20 20:20 04/28/20 20:20 04/28/20 20:20 04/28/20 20:20 - General General appearance: Appears well, Alert In distress: None - Respiratory Respiratory status: No respiratory distress Chest status: Nontender Breath sounds: Normal Chest palpation: Normal - Cardiovascular Rhythm: Regular Heart sounds: Normal auscultation - Abdominal Inspection: Normal Distension: No distension Bowel sounds: Normal Tenderness: Tender - Right lower quadrant. Positive obturator. Organomegaly: No organomegaly - Genitourinary Inspection: Normal Tenderness: Epididymis tender - Slight tenderness right epididymis Cremasteric reflex: Normal Scrotum: Normal. No: Swelling, Redness, Hot to touch Notes: No lesions noted. There is bilateral inguinal lymphadenopathy that is tender to palpation right worse than left - Back Back: No: CVA tenderness - Neurological Neuro grossly intact: Yes Cognition: Normal Orientation: AAOx4 - Psychological Associated symptoms: Normal affect, Normal mood - Skin Skin Temperature: Warm Skin Moisture: Dry Skin Color: Normal Course - Re-evaluation Re-evalutation: 04/28/20 23:06 Lab work largely unremarkable, CT scan showing no acute process per radiologist. The urinalysis showing significant WBCs with some evidence of bacteria although this is obviously not a clean-catch due to the squamous count when coupled with the patient's history of unprotected intercourse, contact with STDs in the past and some epididymal tenderness on the right as well as radiation into the right inguinal and right lower quadrant regions suspect epididymitis. No need for ultrasound evaluation at this time. Is unclear whether or not he was previously treated or tested for possible trichomonas involvement. He was previously given Rocephin and Zithromax. We will treat prophylactically for trichomonas with 2 g of Flagyl p.o. Will treat for epididymitis with doxycycline p.o. twice daily fo r 21 days. Counseled the patient regarding the importance of follow-up with the health department for further outpatient testing, care, surveillance and management. I advised to return here or any ER immediately with any new, persistent or worsening symptoms. He will remain abstinent at this time until cleared by the health department to return to safe sex practices. He verbalized understood and agreed. - Vital Signs Vital signs: Temp Pulse Resp BP Pulse Ox 98.2 F 65 16 131/66 H 98 04/28/20 21:20 04/28/20 20:20 04/28/20 20:20 04/28/20 20:20 04/28/20 20:20 - Laboratory Result Diagrams: 04/28/20 22:02 04/28/20 22:02 Laboratory results interpreted by me: 04/28/20 04/28/20 22:02 22:02 RDW 14.9 H Urine Urobilinogen 2.0 H Leukocyte Esterase Rfl MODERATE H Discharge - Discharge Clinical Impression: Epididymitis Condition: Stable Disposition: HOME, SELF-CARE Instructions: Doxycycline ([facility]), Epididymitis ([facility]) Additional Instructions: Follow-up with your regular doctor in 2 to 3 days for reevaluation. Return here or any ER immediately with any new, persistent or worsening symptoms. Prescriptions: Doxycycline Monohydrate 100 mg PO BID #41 tablet [facility]NO [facility]AL [facility] - Follow up as needed
[2020-04-28 22:15] LABS: ABSOLUTE EOSINOPHILS # (AUTO) 0.2 10^3/uL (0.0-0.6); ABSOLUTE LYMPHOCYTES (AUTO) 2.6 10^3/uL (0.5-4.7); ABSOLUTE MONOCYTES (AUTO) 0.6 10^3/uL (0.1-1.4); BASOPHILS % (AUTO) 0.7 % (0-2); EOSINOPHILS % (AUTO) 2.4 % (0-6); HEMATOCRIT 44.7 % (37.9-51.0); HEMOGLOBIN 15.3 g/dL (13.5-17.0); LYMPHOCYTES % (AUTO) 34.9 % (13-45); MEAN CORPUSCULAR HEMOGLOBIN 29.8 pg (27.0-33.4); MEAN CORPUSCULAR HGB CONC 34.2 g/dL (32.0-36.0); MEAN CORPUSCULAR VOLUME 87 fl (80-97); MONOCYTES % (AUTO) 8.3 % (3-13); PLATELET COUNT 211 10^3/uL (150-450); RED BLOOD COUNT 5.12 10^6/uL (4.35-5.55); RED CELL DISTRIBUTION WIDTH 14.9 % (11.5-14.0); SEGMENTED NEUTROPHILS % (AUTO) 53.7 % (42-78); TOTAL CELLS COUNTED % (AUTO) 100 %; WHITE BLOOD COUNT 7.4 10^3/uL (4.0-10.5)
[2020-04-28 22:26] LABS: APPEARANCE,URINE CLOUDY; BILIRUBIN,URINE NEGATIVE (NEGATIVE); COLOR,URINE YELLOW; GLUCOSE, URINE NEGATIVE (NEGATIVE); KETONES,URINE NEGATIVE (NEGATIVE); PROTEIN,URINE NEGATIVE (NEGATIVE); URINE SPECIFIC GRAVITY 1.025
[2020-04-28 22:30] LABS: BACTERIA,URINE 1+ /HPF
[2020-04-28 22:33] LABS: ALBUMIN 4.3 g/dL (3.5-5.0); ALKALINE PHOSPHATASE 55 U/L (38-126); ANION GAP 6 (5-19); ASPARTATE AMINO TRANSFERASE 29 U/L (17-59); BILIRUBIN,DIRECT 0.3 mg/dL (0.0-0.4); BILIRUBIN,TOTAL 0.4 mg/dL (0.2-1.3); BLOOD UREA NITROGEN 11 mg/dL (7-20); CALCIUM 9.1 mg/dL (8.4-10.2); CARBON DIOXIDE 28 mmol/L (22-30); CHLORIDE 105 mmol/L (98-107); GLUCOSE 91 mg/dL (75-110); POTASSIUM 4.2 mmol/L (3.6-5.0); TOTAL PROTEIN 7.1 g/dL (6.3-8.2)
--- NOTE | 2020-04-28 22:56 | RADIOLOGY REPORT (SQ) ---
EXAM DESCRIPTION: [facility]: CT ABDOMEN PELVIS WITH IV CONTRAST CLINICAL HISTORY: 24 years Male; RLQ pain; TECHNIQUE: CT of the abdomen and pelvis using intravenous contrast. All CT scans at this facility use dose modulation, iterative reconstruction, and/or weight based dosing when appropriate to reduce radiation dose to as low as reasonably achievable. COMPARISON: None. FINDINGS: Abdomen: Stomach: No significant distention or surrounding edema. Liver:No focal lesions. No intrahepatic ductal distention. Gallbladder:Nondistended Pancreas:Within normal limits Spleen:Within normal limits Right kidney:No hydronephrosis. No focal lesion. Left kidney:No hydronephrosis. No focal lesion. Adrenal glands:Within normal limits Vascular structures:Within normal limits Pelvis: Small bowel:No significant distention. Appendix:Within normal limits Colon:No distention or acute pericolonic edema. No free intraperitoneal fluid or air. Bones: No acute bone findings. Bladder: Unremarkable. No pelvic mass or adenopathy. IMPRESSION: 1. Normal CT of the abdomen and pelvis with contrast. 2. Appendix is normal.
[2020-04-28] MEDS ORDERED: METRONIDAZOLE 500 MG TABLET PO ONE (23:04)
[2020-04-28] MEDS ORDERED: DOXYCYCLINE HYCLATE 100 MG TABLET PO ONE (23:05)
== END 2020-04-28 23:51 | disposition home or self-care (01) ==
LOC: ER 20:15
DX: N45.1 Epididymitis (principal); R59.0 Localized enlarged lymph nodes; R10.31 Right lower quadrant pain; R10.813 Right lower quadrant abdominal tenderness
CPT/HCPCS: 36415; 74177; 80053; 81001; 83690; 85025; 99285